=== PATIENT | female | born 1985 | race Caucasian/White ===

== ENCOUNTER 2021-01-04 | Outpatient (REF) | payer OTHER, SELFPAY | END 2021-01-04 00:01 | disposition home or self-care (01) | LOC: HO.LNP | PROVIDERS: Visit Provider Nurse Practitioner Family | DX: Z20.822 Contact with and (suspected) exposure to COVID-19 (principal) | CPT/HCPCS: U0003; U0005 ==

== ENCOUNTER 2023-05-13 07:32 | Outpatient (REF) | payer BC, SELFPAY ==
[2023-05-13 07:36] LABS: MANUAL DIFF FLAG NO
[2023-05-13 07:40] LABS: Basophils Percent Auto 0.3 % (0-2); Eosinophils Absolute Auto 0.2 X10*3/uL (0.0-0.4); Hematocrit 40.5 % (37.0-47.0); Hemoglobin 13.5 g/dl (12.0-16.0); Imm Gran Abs Auto 0.06 X10*3/uL (0.00-0.03); Imm Gran Pct Auto 0.6 % (0.0-0.4); Lymphocytes Absolute Auto 1.4 X10*3/uL (1.2-4.9); Lymphocytes Percent Auto 13.3 % (20-40); Mean Corpuscular HGB Conc 33.3 g/dl (31.0-35.0); Mean Corpuscular Hemoglobin 31.3 pg (27.0-33.0); Mean Platelet Volume 9.5 fL (9.4-12.3); Monocytes Absolute Auto 0.7 X10*3/uL (0.1-1.2); Monocytes Percent Auto 6.6 % (2-11); Neutrophils Absolute Auto 7.9 x10*3/uL (2.0-8.3); Neutrophils Percent Auto 77.2 % (45-73); Platelet Count 264 X10*3/uL (160-400); Red Blood Count 4.31 X10*6/uL (4.20-5.50); White Blood Count 10.3 X10*3/uL (4.8-10.8)
[2023-05-13 08:06] LABS: Alanine Aminotransferase 20 U/L (0-31); Albumin Level 3.8 g/dL (3.5-5.0); Alkaline Phosphatase 46 U/L (39-117); Anion Gap 13 (12-20); Aspartate Amino Transferase 16 U/L (5-31); Bilirubin Total 0.3 mg/dL (0.0-1.0); Blood Urea Nitrogen 9 mg/dL (9-16); Calcium 8.9 mg/dL (8.4-10.2); Carbon Dioxide 21 mmol/L (22-29); Chloride 106 mmol/L (96-108); Cholesterol 202 mg/dL; Estimated Glomerular Filt Rate > 60; Glucose Fasting 79 mg/dL (60-99); HDL Cholesterol 62 mg/dL; LDL Cholesterol Calculated 118 mg/dl; Potassium 4.3 mmol/L (3.3-5.1); Sodium 136 mmol/L (135-145); Total Protein 6.5 g/dL (6.5-8.0); Triglycerides 110 mg/dL
[2023-05-13 08:17] LABS: TSH reflex Free T4 3.44 uIU/mL (0.32-4.0)
== END 2023-05-13 07:33 | disposition home or self-care (01) ==
LOC: HO.LNP 07:32
PROVIDERS: Visit Provider Nurse Practitioner Family
DX: Z00.00 Encounter for general adult medical examination without abnormal findings (principal)
CPT/HCPCS: 80053; 80061; 84443; 85025

== ENCOUNTER 2023-07-03 09:57 | Outpatient (AMB) | payer BC, SELFPAY ==
[2023-07-03 10:06] VITALS: BP 102/70; PULSE 89; O2SAT 100; BMI 31.7
--- NOTE | 2023-07-03 10:06 | A.OFFPC_ITS ---
Vital Signs 07/03/23 10:06 Height 5 ft 2 in Weight 173 lb 6 oz BMI 31.7 BP 102/70 Blood Pressure Location Lt brachial Position Sitting Pulse 89 Pulse Source Pulse Oximeter Pulse Oximetry (%) 100 Oxygen Delivery Method Room Air Intake Visit Reasons: 6 month FU being R/S Allergies valacyclovir [Valtrex] Allergy (Unknown, Verified 07/03/23 10:15) rash and facial numbness Medication List - Last Reconciled 07/03/23 by JAQUAN Hernandez doxylamine succinate (Unisom (doxylamine)) 25 mg PO BEDTIME PRN ondansetron HCl 4 mg PO Q8H prenat.vits,trisha,[id number] 1 tab PO DAILY Tobacco use date assessed: 07/03/23 Dental Screening Dental Screen Date: 07/03/23 Did you have a dental visit in the last 12 months?: Yes Did you have a dental problem in the last 6 months where you did not have access to dental care?: No Was dental information given to patient?: Patient has dentist HPI 6 month FU being R/S HPI Details Pt is here for a PE. Will order labs. 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 Maternal Grandmother Alzheimer's disease Dementia Colon cancer Paternal Grandfather Liver cancer Stomach cancer Paternal Grandmother No problems noted. Sister Asthma Social History Housing: House Alcohol intake: current Alcohol intake frequency: a few times a week Alcohol type: wine Patient Tobacco Use Status: Never used Tobacco e-Cigarette/Vaping Use: Never Used Second Hand Smoke Exposure: No service: No Current occupational status: employed Current occupation: [employer] Current occupational exposures/hazards: Yes Cognitive needs: No Hearing needs: No Vision needs: No Questionnaire Thrive Questionnaire Date Thrive assessed: 07/07/22 HODAN-7 AMB Questionnaire HODAN-7 Date HODAN - 7 assessed: 07/07/22 Source: Developed by Drs. Taco Pyle, Gloria Heard, Collin Blanchard and colleagues, with an educational tanmay from [employer]. Review of Systems Const Denies chills and Denies fever(s) Eyes Denies blurry vision ENT Denies vertigo, Denies dizziness and Denies sore throat Card Denies chest pain at rest, Denies chest pain with activity, Denies diaphoresis, Denies dyspnea and Denies dyspnea on exertion Resp Denies cough, Denies dyspnea, Denies dyspnea on exertion and Denies wheezing GI Denies abdominal pain, Denies melena, Denies hematochezia, Denies constipation, Denies diarrhea and Denies loose stools Denies hematuria Musc Denies numbness and Denies tingling Skin/Breast Denies lesions Neuro Denies vertigo, Denies dizziness, Denies numbness and Denies tingling Psych Denies anxiety, Denies depression, Denies homicidal ideation, Denies suicidal ideation and Denies other (substance abuse) Aller/Immun Denies wheezing Physical exam (Primary Care) Vital Signs: Last Vital Signs Pulse 89 07/03/23 10:06 BP 102/70 07/03/23 10:06 Pulse Ox 100 07/03/23 10:06 Oxygen Delivery Method Room Air 07/03/23 10:06 BMI result Body Mass Index 31.7 Tobacco/Smoking Status: Tobacco use Status Tobacco use date assessed 07/03/23 07/03/23 10:18 Patient Tobacco Use Status Never used Tobacco 07/03/23 10:18 e-Cigarette/Vaping Use Never Used 07/03/23 10:18 Thrive Assessment: Date of Thrive Assessment Date Thrive assessed 07/07/22 07/03/23 10:18 Const General: cooperative Nutritional Appearance: well nourished Orientation/consciousness: patient oriented x3 HENMT Head: Yes normal to inspection, Yes normocephalic and Yes atraumatic Ears: TM's normal bilaterally Eyes General: appearance normal, both eyes and all related structures Alignment and Position: alignment normal and position normal Neck Neck: Yes normal visual inspection and Yes no lymphadenopathy Thyroid: Thyroid normal Resp Effort & Inspection: normal respiratory effort Auscultation: clear to auscultation bilaterally Cardio Rate: regular rate Rhythm: regular rhythm Heart sounds: S1 normal heart sound present, S2 normal heart sound present and no murmurs GI Palpation (GI): Soft to palpation and nontender Auscultation: normal bowel sounds Skin Rashes: no rashes Neuro General: patient oriented x3, moves all extremities, no focal motor deficits and deep tendon reflexes 2+ bilaterally Romberg Test: Negative Psych Appearance: grossly normal Mental Status: mental status grossly normal Speech and movement: Normal speech and movement present Affect: normal affect Attitude: cooperative Thought process: Normal thought process present Thought content: Normal thought content present Insight: Good insight present (Psych) Judgement: Good judgement present (Psych) Assessment and Plan Assessment & Plan (1) Physical exam: Code(s): Z.00 - Encounter for general adult medical examination without abnormal findings Plan: Labs ordered Plan The patient agreed to the use of a medical insurance claims specialist for this encounter. Scribed for JAQUAN Parish by Jahaira Cunningham medical insurance claims specialist, on 07/03/2023 at 10:35 EST. Orders: Orders Complete Blood Count Auto Diff Today Z00.00 - Encounter for general adult medical examination without abnormal findings UA CC w/rflx Micro + Cult Today Z00.00 - Encounter for general adult medical examination without abnormal findings Comprehensive [place]. Panel Fast Today Z00.00 - Encounter for general adult medical examination without abnormal findings TSH reflex Free T4 Today Z00.00 - Encounter for general adult medical examination without abnormal findings Lipid Panel Today Z00.00 - Encounter for general adult medical examination without abnormal findings Coding Level of Care Code Est Pt Prev Care 18-39y(42461) Diagnoses Physical exam Z00.00
== END 2023-07-03 10:45 | disposition home or self-care (01) ==
PROVIDERS: PCP Nurse Practitioner Family; Visit Provider Nurse Practitioner Family
DX: Z00.00 Encounter for general adult medical examination without abnormal findings (principal)
CPT/HCPCS: 99395

== ENCOUNTER 2023-12-25 09:18 | Outpatient (AMB) | payer BC, SELFPAY ==
[2023-12-25 09:24] VITALS: BP 110/68; PULSE 76; O2SAT 98; BMI 29.1
--- NOTE | 2023-12-25 09:24 | MHC.PC.OV ---
Vital Signs 12/25/23 09:24 Height 5 ft 2 in Weight 159 lb BMI 29.1 BP 110/68 Blood Pressure Location Lt brachial Position Sitting Pulse 76 Pulse Source Pulse Oximeter Pulse Oximetry (%) 98 Oxygen Delivery Method Room Air Intake Visit Reasons: 6 Month follow up Intake Note: pt is here for 6 month follow up Instructional Assistant Required: No Accompanied by: Self / Same As Patient Allergies valacyclovir [Valtrex] Allergy (Unknown, Verified 12/25/23 09:49) rash and facial numbness Medication List - Last Reconciled 12/25/23 by JAQUAN Hernandez ondansetron HCl 4 mg PO Q8H prenat.vits,trisha,[id number] 1 tab PO DAILY sertraline 50 mg PO DAILY Tobacco use date assessed: 12/25/23 Dental Screening Dental Screen Date: 12/25/23 Did you have a dental visit in the last 12 months?: Yes Did you have a dental problem in the last 6 months where you did not have access to dental care?: No Was dental information given to patient?: Patient has dentist HPI 6 Month follow up HPI Details depression/anxiety, Post- depression: Pt is on sertraline, doing well on this medication. Denies any SI and HI. Pt is also following up with her health technician/ob. Pt also has a therapist, which is going well. [facility] Surgical History History of section History of bunionectomy Family History Father HTN (hypertension) Diabetes mellitus Substance use disorder Mother Cirrhosis ETOH abuse FH: mental illness Substance use disorder Maternal Grandfather No problems noted. Maternal Grandmother Alzheimer's disease Dementia Colon cancer Paternal Grandfather Liver cancer Stomach cancer Paternal Grandmother No problems noted. Sister Asthma Social History Housing: House Alcohol intake: current Alcohol intake frequency: a few times a week Alcohol type: wine Patient Tobacco Use Status: Never used Tobacco e-Cigarette/Vaping Use: Never Used Second Hand Smoke Exposure: No service: No Current occupational status: employed Current occupation: [employer] Current occupational exposures/hazards: Yes Cognitive needs: No Hearing needs: No Vision needs: No Questionnaire PHQ-9 Over the last 2 weeks, how often have you been bothered by any of the following problems? 1. Little interest or pleasure in doing things: not at all 2. Feeling down, depressed, or hopeless: not at all 3. Trouble falling or staying asleep, or sleeping too much: more than half the days 4. Feeling tired or having little energy: several days 5. Poor appetite or overeating: not at all 6. Feeling bad about yourself - or that you are a failure or have let yourself or your family down: not at all 7. Trouble concentrating on things, such as reading the newspaper or watching television: several days 8. Moving or speaking so slowly that other people could have noticed. Or the opposite - being so fidgety or restless that you have been moving around a lot more than usual: not at all 9. Thoughts that you would be better off or of hurting yourself in some way: not at all Total score: 4 Depression Screening Interpretation: Negative Depression Screening Done: Yes 32412 - PHQ-9 Billing: Yes Source: Developed by Drs. Taco Pyle, Gloria Heard, Collin Blanchard and colleagues, with an educational tanmay from [employer]. Thrive Questionnaire Date Thrive assessed: 12/25/23 I am a: Patient What is your living situation today?: I have a steady place to live Within the past 12 months, did the food you bought not last and you didn't have the money to get more?: Never true Within the past 12 months, did you worry whether your food would run out before you got money to buy more?: Never true Do you have trouble paying for medicines?: No Do you have trouble getting transportation to medical appointments?: No Do you have trouble paying your heating and electricity bill?: No Do you have trouble taking care of your child, family member or friend?: No Do you have trouble with day-to-day activities such as bathing, preparing meals, shopping, managing finances, etc.?: No Are you currently unemployed and looking for a job?: No Are you interested in more education?: No Please select the resources that you would like help with: None Currently or been in a relationship where the following occur: no concerns reported THRIVE Score: 0 AUDIT C Alcohol Use Questionnaire (AUDIT-C) 1. How often do you have a drink containing alcohol?: 2-3 times a week 2. How many drinks containing alcohol do you have on a typical day when you are drinking?: 1 or 2 3. How often do you have six or more drinks on one occasion?: Never Total Score: 3 Score Reviewed/Action Taken: Yes HODAN-7 AMB Questionnaire OHDAN-7 Date HODAN - 7 assessed: 12/25/23 Feeling nervous, anxious, or on edge: 0 = Not at all Not being able to stop or control worryin = Not at all Worrying too much about different things: 0 = Not at all Trouble relaxin = Several days Being so restless that it is hard to sit still: 1 = Several days Becoming easily annoyed or irritable: 1 = Several days Feeling afraid as if something awful might happen: 0 = Not at all Total HODAN-7 score (0-4 normal; 5-9 mild; 10-14 moderate; 15-21 severe): 3 Source: Developed by Drs. Taco Pyle, Gloria Heard, Collin Blanchard and colleagues, with an educational tanmay from [employer]. HODAN-7 Assessment Billing HODAN-7 Assessment Tool: HODAN-7 Assessment 24612 Review of Systems Const Reports as per HPI Physical exam (Primary Care) Vital Signs: Last Vital Signs Pulse 76 12/25/23 09:24 BP 110/68 12/25/23 09:24 Pulse Ox 98 12/25/23 09:24 Oxygen Delivery Method Room Air 12/25/23 09:24 BMI result Body Mass Index 29.1 Tobacco/Smoking Status: Tobacco use Status Tobacco use date assessed 12/25/23 12/25/23 09:25 Patient Tobacco Use Status Never used Tobacco 12/25/23 09:25 e-Cigarette/Vaping Use Never Used 12/25/23 09:25 PHQ-9: PHQ-9 Score PHQ-9: Total score 4 12/25/23 09:44 Depression Screening Interpretation: Negative Thrive Assessment: Date of Thrive Assessment Date Thrive assessed 12/25/23 12/25/23 09:34 Currently or been in a relationship where the following occur: no concerns reported Const General: cooperative Orientation/consciousness: patient oriented x3 Resp Effort & Inspection: normal respiratory effort Auscultation: clear to auscultation bilaterally Cardio Rate: regular rate Rhythm: regular rhythm Heart sounds: S1 normal heart sound present and S2 normal heart sound present Neuro General: patient oriented x3 Psych Appearance: grossly normal Mental Status: mental status grossly normal Speech and movement: Normal speech and movement present Affect: normal affect Attitude: cooperative Thought process: Normal thought process present Thought content: Normal thought content present Insight: Good insight present (Psych) Judgement: Good judgement present (Psych) Assessment and Plan Assessment & Plan (1) 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 Scribed for JAQUAN Parish by Jahaira Cunningham medical chief technician, on 12/25/2023 at 09:40 EST. Coding Level of Care Code Est Pt Level 3 (64428) Diagnoses Post depression F53.0 Additional Codes HODAN-7 Assessment Billing - HODAN-7 Assessment Tool: HODAN-7 Assessment 07890 ([id number])
== END 2023-12-25 11:07 | disposition home or self-care (01) ==
PROVIDERS: PCP Nurse Practitioner Family; Visit Provider Nurse Practitioner Family
DX: F53.0 Postpartum depression (principal)
CPT/HCPCS: 99213

== ENCOUNTER 2024-07-02 13:05 | Outpatient (AMB) | payer BC, SELFPAY ==
[2024-07-02 13:08] VITALS: BP 118/72; PULSE 74; O2SAT 98; BMI 29.4
--- NOTE | 2024-07-02 13:08 | MHC.PC.OV ---
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 Will order labs. 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 [facility] Surgical History History of section History of bunionectomy Family History Father HTN (hypertension) Diabetes mellitus Substance use disorder Mother Cirrhosis ETOH abuse FH: mental illness Substance use disorder Maternal Grandfather No problems noted. Maternal Grandmother Alzheimer's disease Dementia Colon cancer Paternal Grandfather Liver cancer Stomach cancer Paternal Grandmother No problems noted. Sister Asthma Social History Housing: House Alcohol intake: current Alcohol intake frequency: a few times a week Alcohol type: wine Patient Tobacco Use Status: Never used Tobacco e-Cigarette/Vaping Use: Never Used Second Hand Smoke Exposure: No service: No Current occupational status: employed Current occupation: [employer] Current occupational exposures/hazards: Yes Cognitive needs: No Hearing needs: No Vision needs: No Questionnaire PHQ-9 Over the last 2 weeks, how often have you been bothered by any of the following problems? 79845 - PHQ-9 Billing: Patient declined-do not bill Source: Developed by Drs. Taco Pyle, Gloria Heard, Collin Blanchard and colleagues, with an educational tanmay from [employer]. Thrive Questionnaire Date Thrive assessed: 12/25/23 I am a: Patient What is your living situation today?: I have a steady place to live Within the past 12 months, did the food you bought not last and you didn't have the money to get more?: Never true Within the past 12 months, did you worry whether your food would run out before you got money to buy more?: Never true Do you have trouble paying for medicines?: No Do you have trouble getting transportation to medical appointments?: No Do you have trouble paying your heating and electricity bill?: No Do you have trouble taking care of your child, family member or friend?: No Do you have trouble with day-to-day activities such as bathing, preparing meals, shopping, managing finances, etc.?: No Are you interested in more education?: No Please select the resources that you would like help with: None Currently or been in a relationship where the following occur: No concerns reported THRIVE Score: 0 AUDIT C Alcohol Use Questionnaire (AUDIT-C) 1. How often do you have a drink containing alcohol?: 2-3 times a week 2. How many drinks containing alcohol do you have on a typical day when you are drinking?: 1 or 2 3. How often do you have six or more drinks on one occasion?: Never Total Score: 3 HODAN-7 AMB Questionnaire HODAN-7 Date HODAN - 7 assessed: 12/25/23 Feeling nervous, anxious, or on edge: 0 = Not at all Not being able to stop or control worryin = Not at all Worrying too much about different things: 0 = Not at all Trouble relaxin = Not at all Being so restless that it is hard to sit still: 0 = Not at all Becoming easily annoyed or irritable: 0 = Not at all Feeling afraid as if something awful might happen: 0 = Not at all Total HODAN-7 score (0-4 normal; 5-9 mild; 10-14 moderate; 15-21 severe): 0 Source: Developed by Drs. Taco Pyle, Gloria Heard, Collin Blanchard and colleagues, with an educational tanmay from [employer]. HODAN-7 Assessment Billing HODAN-7 Assessment Tool: HODAN-7 Assessment 61849 Review of Systems Const Denies chills and Denies fever(s) Eyes Denies blurry vision ENT Denies vertigo, Denies dizziness and Denies sore throat Card Denies chest pain at rest, Denies chest pain with activity, Denies diaphoresis, Denies dyspnea and Denies dyspnea on exertion Resp Denies cough, Denies dyspnea, Denies dyspnea on exertion and Denies wheezing GI Denies abdominal pain, Denies melena, Denies hematochezia, Denies constipation, Denies diarrhea and Denies loose stools Denies hematuria Musc Denies numbness and Denies tingling Skin/Breast Denies lesions Neuro Denies vertigo, Denies dizziness, Denies numbness and Denies tingling Psych Denies anxiety, Denies depression, Denies homicidal ideation, Denies suicidal ideation and Denies other (substance abuse) Aller/Immun Denies wheezing Physical exam (Primary Care) Vital Signs: Last Vital Signs Pulse 74 07/02/24 13:08 BP 118/72 07/02/24 13:08 Pulse Ox 98 07/02/24 13:08 BMI result Body Mass Index 29.4 Tobacco/Smoking Status: Tobacco use Status Tobacco use date assessed 12/25/23 07/02/24 13:11 Patient Tobacco Use Status Never used Tobacco 07/02/24 13:11 e-Cigarette/Vaping Use Never Used 07/02/24 13:11 Thrive Assessment: Date of Thrive Assessment Date Thrive assessed 12/25/23 07/02/24 13:11 Currently or been in a relationship where the following occur: No concerns reported Const General: cooperative Nutritional Appearance: well nourished Orientation/consciousness: patient oriented x3 HENMT Head: Yes normal to inspection, Yes normocephalic and Yes atraumatic Ears: TM's normal bilaterally Eyes General: appearance normal, both eyes and all related structures Alignment and Position: alignment normal and position normal Neck Neck: Yes normal visual inspection, Yes no lymphadenopathy and Yes supple Resp Effort & Inspection: normal respiratory effort Auscultation: clear to auscultation bilaterally Cardio Rate: regular rate Rhythm: regular rhythm Heart sounds: S1 normal heart sound present, S2 normal heart sound present and no murmurs GI Palpation (GI): Soft to palpation and nontender Auscultation: normal bowel sounds Skin Rashes: no rashes Neuro General: patient oriented x3, moves all extremities, no focal motor deficits and deep tendon reflexes 2+ bilaterally Romberg Test: Negative Psych Appearance: grossly normal Mental Status: mental status grossly normal Speech and movement: Normal speech and movement present Affect: normal affect Attitude: cooperative Thought process: Normal thought process present Thought content: Normal thought content present Insight: Good insight present (Psych) Judgement: Good judgement present (Psych) Assessment and Plan Assessment & Plan (1) Physical exam: Code(s): Z00.00 - Encounter for general adult medical examination without abnormal findings Plan: Labs ordered Plan The patient agreed to the use of a medical apparatus model maker for this encounter. Scribed for JAQUAN Parish by Jahaira Cunningham medical apparatus model maker, on 07/02/2024 at 13:20 EST. Orders: Orders Complete Blood Count Auto Diff Today Z00.00 - Encounter for general adult medical examination without abnormal findings Comprehensive [place]. Panel Fast Today Z00.00 - Encounter for general adult medical examination without abnormal findings Lipid Panel Today Z00.00 - Encounter for general adult medical examination without abnormal findings TSH reflex Free T4 Today Z00.00 - Encounter for general adult medical examination without abnormal findings UA CC w/rflx Micro + Cult Today Z00.00 - Encounter for general adult medical examination without abnormal findings Medications: New miconazole nitrate 2% (Antifungal (miconazole)) 1 appl topical DAILY 15 grams 0RF betamethasone valerate 0.1% 1 appl topical DAILY 15 grams 0RF mupirocin 2% 1 appl topical DAILY 15 grams 0RF Coding Level of Care Code Est Pt Prev Care 18-39y(72705) Diagnoses Physical exam Z00.00 Additional Codes HODAN-7 Assessment Billing - HODAN-7 Assessment Tool: HODAN-7 Assessment 63952 ([id number])
== END 2024-07-02 13:37 | disposition home or self-care (01) ==
PROVIDERS: PCP Nurse Practitioner Family; Visit Provider Nurse Practitioner Family
DX: Z00.00 Encounter for general adult medical examination without abnormal findings (principal)

== ENCOUNTER → 2024-07-02 13:05 | Outpatient (BNVA) | payer BC, SELFPAY | PROVIDERS: PCP Nurse Practitioner Family; Visit Provider Nurse Practitioner Family | DX: Z00.00 Encounter for general adult medical examination without abnormal findings (principal) | CPT/HCPCS: 96127 ==

== ENCOUNTER 2025-07-21 10:57 | Outpatient (AMB) | payer OTHER, SELFPAY ==
--- NOTE | 2025-07-21 11:05 | A.OFFPC_ITS ---
Vital Signs 07/21/25 11:06 Height 5 ft 2 in Weight 169 lb BMI 30.9 BP 110/68 Blood Pressure Location Lt brachial Position Sitting Respiration 16 Pulse 66 Pulse Source Pulse Oximeter Pulse Oximetry (%) 99 Oxygen Delivery Method Room Air Intake Visit Reasons: PE/inactive ins, check with OA Manager Search Required: No Accompanied by: Self / Same As Patient Allergies valacyclovir (Valtrex) Allergy (Unknown, Verified 07/21/25 11:10) rash and facial numbness Medication List - Last Reconciled 07/21/25 by MARY LOU Hernandez No Known Home Meds Tobacco use date assessed: 07/21/25 Dental Screening Dental Screen Date: 07/21/25 Did you have a dental visit in the last 12 months?: Yes Did you have a dental problem in the last 6 months where you did not have access to dental care?: No Was dental information given to patient?: Patient has dentist HPI PE/inactive ins, check with OA HPI Details History of Present Illness The patient is a 39-year-old female presenting for a physical examination. She is approximately 11 weeks and is currently under the care of a paper inspector. She is taking vitamins and reports feeling well overall. Her cardiovascular examination revealed normal S1 and S2 heart sounds, and her respiratory examination showed clear lungs bilaterally. She mentioned that her laboratory tests have already been completed and will be sent for review. Health Maintenance Social History Review of Systems - General: Reports feeling well overall Physical Exam General: Cooperative, healthy appearing, comfortable, no acute distress and well developed, Orientation: Patient oriented x3 Limitations: No limitations Head: Normal to inspection Ears: Hearing grossly normal bilaterally Nose: Normal external nose present Face and sinus: Normal facial exam Eyes: Appearance normal, both eyes and all related structures Neck: Normal visual inspection and Yes full ROM Respiratory: Normal respiratory effort and able to speak in complete sentences. Clear to auscultation bilaterally Cardiovascular: Regular rate and rhythm. Normal S1 and S2 GI: Normal to inspection. Soft to palpation and nontender Skin: No rashes or lesions noted Neuro: Patient oriented x3 Extremities: Normal to inspection Results Plan 1. The patient is approximately 11 weeks and is currently under the care of a paper inspector. She is taking vitamins and reports feeling well overall. Her laboratory tests have been completed and will be reviewed once received. 2. Encounter for general adult medical e xamination without abnormal findings Z00.00 Discussion Notes Patient Instructions [facility] Surgical History History of section History of bunionectomy Family History Father HTN (hypertension) Diabetes mellitus Substance use disorder Mother Cirrhosis ETOH abuse FH: mental illness Substance use disorder Maternal Grandfather No problems noted. Maternal Grandmother Alzheimer's disease Dementia Colon cancer Paternal Grandfather Liver cancer Stomach cancer Paternal Grandmother No problems noted. Sister Asthma Social History Housing: House Alcohol intake: current Alcohol intake frequency: a few times a week Alcohol type: wine Patient Tobacco Use Status: Never used Tobacco e-Cigarette/Vaping Use: Never Used Second Hand Smoke Exposure: No service: No Current occupational status: employed Current occupation: [employer] Current occupational exposures/hazards: Yes Cognitive needs: No Hearing needs: No Vision needs: No Questionnaire PHQ-9 Over the last 2 weeks, how often have you been bothered by any of the following problems? 1. Little interest or pleasure in doing things: not at all 2. Feeling down, depressed, or hopeless: not at all 3. Trouble falling or staying asleep, or sleeping too much: several days 4. Feeling tired or having little energy: more than half the days 5. Poor appetite or overeating: not at all 6. Feeling bad about yourself - or that you are a failure or have let yourself or your family down: not at all 7. Trouble concentrating on things, such as reading the newspaper or watching television: several days 8. Moving or speaking so slowly that other people could have noticed. Or the opposite - being so fidgety or restless that you have been moving around a lot more than usual: not at all 9. Thoughts that you would be better off or of hurting yourself in some way: not at all Total score: 4 Depression Screening Interpretation: Negative Depression Screening Done: Yes 75864 - PHQ-9 Billing: Yes Source: Developed by Drs. Taco Pyle, Gloria Collin Wang and colleagues, with an educational tanmay from [employer] Thrive Questionnaire Date Thrive assessed: 12/25/23 I am a: Patient What is your living situation today?: I have a steady place to live Within the past 12 months, did the food you bought not last and you didn't have the money to get more?: Never true Within the past 12 months, did you worry whether your food would run out before you got money to buy more?: Never true Do you have trouble paying for medicines?: No Do you have trouble getting transportation to medical appointments?: No Do you have trouble paying your heating and electricity bill?: No Do you have trouble taking care of your child, family member or friend?: No Do you have trouble with day-to-day activities such as bathing, preparing meals, shopping, managing finances, etc.?: No Are you currently unemployed and looking for a job?: No Are you interested in more education?: No Please select the resources that you would like help with: None Currently or been in a relationship where the following occur: No concerns reported THRIVE Score: 0 AUDIT C Alcohol Use Questionnaire (AUDIT-C) 1. How often do you have a drink containing alcohol?: Monthly or less 2. How many drinks containing alcohol do you have on a typical day when you are drinking?: 1 or 2 3. How often do you have six or more drinks on one occasion?: Never Total Score: 1 HODAN-7 AMB Questionnaire HODAN-7 Date HODAN - 7 assessed: 07/21/25 Feeling nervous, anxious, or on edge: 0 = Not at all Not being able to stop or control worryin = Not at all Worrying too much about different things: 0 = Not at all Trouble relaxin = Not at all Being so restless that it is hard to sit still: 1 = Several days Becoming easily annoyed or irritable: 0 = Not at all Feeling afraid as if something awful might happen: 0 = Not at all Total HODAN-7 score (0-4 normal; 5-9 mild; 10-14 moderate; 15-21 severe): 1 Source: Developed by Drs. Taco Pyle, Collin Tamez and colleagues, with an educational tanmay from [employer] HODAN-7 Assessment Billing HODAN-7 Assessment Tool: HODAN-7 Assessment 73719 Physical exam (Primary Care) Vital Signs: Last Vital Signs Pulse 66 07/21/25 11:06 Resp 16 07/21/25 11:06 BP 110/68 07/21/25 11:06 Pulse Ox 99 07/21/25 11:06 Oxygen Delivery Method Room Air 07/21/25 11:06 BMI result Body Mass Index 30.9 Tobacco/Smoking Status: Tobacco use Status Tobacco use date assessed 07/21/25 07/21/25 11:11 Patient Tobacco Use Status Never used Tobacco 07/21/25 11:11 e-Cigarette/Vaping Use Never Used 07/21/25 11:11 PHQ-9: PHQ-9 Score PHQ-9: Total score 4 07/21/25 11:11 Depression Screening Interpretation: Negative Thrive Assessment: Date of Thrive Assessment Date Thrive assessed 12/25/23 07/21/25 11:11 Currently or been in a relationship where the following occur: No concerns reported Coding Level of Care Code Est Pt Prev Care 40-64y(02874) Diagnoses Physical exam Z00.00 Z34.90 Additional Codes HODAN-7 Assessment Billing - HODAN-7 Assessment Tool: HODAN-7 Assessment 21749 ([id number]) PHQ-9 - 43938 - PHQ-9 Billing: Yes ([id number]) Assessment & Plan Assessment & Plan (1) Physical exam: Code(s): Z00.00 - Encounter for general adult medical examination without abnormal findings Category: Medical (2) : Code(s): Z34.90 - Encounter for supervision of normal , unspecified, unspecified trimester Category: Medical Plan . Orders: Orders Complete Blood Count Auto Diff Today Z00.00 - Encounter for general adult medical examination without abnormal findings, Z34.90 - Encounter for supervision of normal , unspecified, unspecified trimester Comprehensive [place]. Panel Fast Today Z00.00 - Encounter for general adult medical examination without abnormal findings, Z34.90 - Encounter for supervision of normal , unspecified, unspecified trimester UA CC w/rflx Micro + Cult Today Z00.00 - Encounter for general adult medical examination without abnormal findings, Z34.90 - Encounter for supervision of normal , unspecified, unspecified trimester TSH reflex Free T4 Today Z00.00 - Encounter for general adult medical examination without abnormal findings, Z34.90 - Encounter for supervision of normal , unspecified, unspecified trimester Lipid Panel Today Z00.00 - Encounter for general adult medical examination without abnormal findings, Z34.90 - Encounter for supervision of normal , unspecified, unspecified trimester
[2025-07-21 11:06] VITALS: BP 110/68; PULSE 66; RESP 16; O2SAT 99; BMI 30.9
--- OUTSIDE RECORDS SUMMARY | 2025-07-21 13:20 | XMS_ITS | Patient Health Record ---
[facility] Organization [facility] Address [address] [place] [address] Care Team Providers Care Residential Case Manager Name Role Phone Oscar Salas Primary Care Provider Unav ailable Black, Beryl Unavailable [phone] Allergies Allergen (clinical drug ingredient) Drug/Non Drug Allergy documented on EMR Reaction Allergy Type Onset Date Status valacyclovir Valtrex rash hives Drug Allergy Act terry Reason For Referral No Information Medications Medication SIG (Take, Route, Frequency, Duration) Notes Start Date End Date Status Fioricet Not-Taking ZyrTEC Allergy 10 MG 1 tablet Orally Onc e a day Not-Taking Ibuprofen 800 MG 1 tablet with food o r milk Orally Three times a day Not-Taking Multivitamin Not-Walker ing Depo-Provera Not-Walker ing Physical Therapy 3-4x per week for 3- 4 weeks 05/12/2017 Not-Taking Keflex Active Sertraline HCl 50 MG 1 tablet Orally Onc e a day Not-Taking Active Doxycycline Hyclate 100 MG 1 capsule Orally Once a day; Duration: 10 day(s) 02/09/2024 Not-Taking Social History Tobacco Use: Social History Observation Description Date Details (start date - stop date) Never Smoker NA - NA Tobacco Use/Smoking Question Answer Notes Are you a: nonsmoker Additional Findings: Tobacco Non-User Current no n-smoker Alcohol Screen Question Answer Notes Did you have a drink contain ing alcohol in the past year? Yes How often did you have a dri nk containing alcohol in the past year? 2 to 4 times a month (2 points) Points 2 Interpretation Negative Tobacco use other than smoking: Question Answer Notes Are you an other tobacco user? No Problems Problem Type SNOMED Code ICD Code Onset Dates Problem Status W/U Status Risk Notes Problem Acquired hallux valgus (97222956) Hallux valgus (acquired), left foot (M20.12) Active confirmed Problem Acquired hallux valgus (22066658) Hallux valgus (acquired), right foot (M20.11) Active confirmed Problem Acquired deformity of right foot (disorder) (838913483) Other acquired deformities of right foot (M21.6X1) Active confirmed Problem Non-pressure chronic ulcer of other part of left foot limited to breakdown of skin (L97.521) Active confirmed Problem Non-pressure chronic ulcer of other part of right foot limited to breakdown of skin (L97.511) Active confirmed Problem Acquired hallux rigidus (1148916) Hallux rigidus of right foot (M20.21) Active confirmed Problem Ulcer of toe of right foot (disorder) (685842135391 85746) Skin ulcer of toe of right foot, limited to breakdown of skin (L97.511) Active confirmed Improvement Problem Ulcer of toe of left foot (disorder) ([id number] 00357) Skin ulcer of toe of left foot, limited to breakdown of skin (L97.521) Active confirmed Improvement Problem Skin ulcer of toe of right foot with fat layer exposed (L97.512) Active confirmed Problem Skin ulcer of toe of left foot with fat layer exposed (L97.522) Active confirmed Plan Of Treatment Pending Test Test Name Order Date [id number] Plate 07/28/2022 43127-Ooeijbvn Plate 09/14/2022 45384-Idazqrpa Plate 04/12/2023 37304-Hdnyrltz Plate 05/31/2023 [id number] 02/09/2024 [id number] 02/26/2024 85404- Debride <25 sq cm 06/14/2023 [id number] SKIN/TISSUE 02/26/2024 99533 I&D ABSCESS- SIMPLE,SINGLE 024 Insurance Providers Payer Name Payer Address Payer Phone Subscriber Number Group Number Insured Name Patient Relationship to Insured Coverage Start Date Coverage End Date [facility] [address] [place] [address] [phone] [id number] Titi Chaidez Self - patient is the insured Medical (General) History Medical History History ICD Code covid-19 Warts Surgical History Surgery Date(Month/Year) T9 comp. Frac. 10/2005 bunionectomy, complications - joint stif fness 09/12/2016 C Section 11/03/21 C section 09/2023
== END 2025-07-21 11:50 | disposition home or self-care (01) ==
PROVIDERS: PCP Nurse Practitioner Family; Visit Provider Nurse Practitioner Family
DX: Z00.00 Encounter for general adult medical examination without abnormal findings (principal); Z34.90 Encounter for supervision of normal pregnancy, unspecified, unspecified trimester

== ENCOUNTER → 2025-07-21 10:57 | Outpatient (BNVA) | payer OTHER, SELFPAY | PROVIDERS: PCP Nurse Practitioner Family; Visit Provider Nurse Practitioner Family | DX: Z00.00 Encounter for general adult medical examination without abnormal findings (principal); Z34.91 Encounter for supervision of normal pregnancy, unspecified, first trimester | CPT/HCPCS: 96127 ==